=== PATIENT | female | born 1985 | race Caucasian/White ===

== ENCOUNTER 2021-04-27 03:10 | Emergency (ER) | payer MEDICARE, MEDICAID, SELFPAY ==
[2021-04-27 03:20] VITALS: BP 148/106; PULSE 89; RESP 20; TEMP 36.8; O2SAT 96
--- NOTE | 2021-04-27 03:31 | ED.FEMALEGU ---
HPI - Female Genitourinary General Chief complaint: Urogenital-Female Stated complaint: Back pain/Cramping Time Seen by Provider: 04/27/21 03:28 Source: patient and RN notes reviewed Mode of arrival: ambulatory Limitations: no limitations History of Present Illness MD elicited complaint: vaginal bleeding, pelvic pain, back pain and suspected Pertinent past history: tubal ligation Onset (ago): day(s) (4) Quality of pain: sharp and stabbing Consistency: intermittent Vaginal bleeding: heavy Sexual activity: Yes Possible : unsure if and at home test positive Related Data : 14 Para: 6 Total number of abortions (spontaneous and elective): 8 Home Medications Medication Instructions Recorded Confirmed albuterol 90 mcg INHALATION PRN 04/27/21 04/27/21 hydroxyzine HCl 25 mg PO TID PRN 04/27/21 04/27/21 metformin 500 mg PO DAILY 04/27/21 04/27/21 Allergies Allergy/AdvReac Type Severity Reaction Status Date / Time codeine Allergy Unknown Verified 04/27/21 03:23 cyclobenzaprine Allergy Unknown Verified 04/27/21 03:23 [From Flexeril] hydromorphone [From Dilaudid] Allergy Unknown Verified 04/27/21 03:23 meloxicam Allergy Unknown Verified 04/27/21 03:23 morphine Allergy Unknown Verified 04/27/21 03:23 PMFSH Past Medical History Medical History (Updated 04/27/21 @ 06:52 by Justin Cai MD) Anxiety COPD (chronic obstructive pulmonary disease) Morbid obesity PTSD (post-traumatic stress disorder) Type 2 diabetes mellitus Surgical History Surgical History (Updated 04/27/21 @ 03:41 by Justin Cai MD) H/O knee surgery History of bilateral tubal ligation failed Social History Social History (Updated 04/27/21 @ 03:41 by Justin Cai MD) Smoking packs per day: 1.5 Smoking cigarettes per day: 30.0 Smoking status: Current every day smoker Tobacco type: cigarettes Alcohol intake: never Substance use: never Exam Const: General: no acute distress Nutritional Appearance: well nourished and obese morbidly obese Orientation/consciousness: patient oriented x3 HENMT: Head: normal to inspection Ears: external ears normal Face and sinus: normal facial exam Eyes: Conjunctivae: conjunctivae normal Pupils: Equal, round and reactive pupils present EOM: EOMs intact bilaterally Neck: Neck: normal visual inspection Resp: Effort & Inspection: normal respiratory effort Auscultation: clear to auscultation bilaterally Cardio: Rate: regular rate Rhythm: regular rhythm GI: GI Palp: Yes Soft to palpation, Yes Tenderness to palpation present (GI) (diffuse), Yes Guarding due to palpation present (GI) and No Rebound tenderness present Auscultation: normal bowel sounds Back/Spine/Pelvis: Cervical Spine: cervical ROM normal Thoracic/Lumbar Spine: thoraco-lumbar ROM normal Skin: General skin exam: normal color Rashes: no rashes Neuro: General: patient oriented x3, moves all extremities, no meningeal signs and no focal motor deficits Speech: normal speech Gait exam (Neuro): Normal gait present Extrem: General: normal to inspection and no clubbing, cyanosis or edema Psych: Appearance: well kempt Mental Status: mental status grossly normal Affect: normal affect Attitude: cooperative Thought content: Yes Normal thought content present Course Course Emergency Course: once patient found out she was not she left AMA. Vital Signs Vital signs: Vital Signs Temperature 36.8 C 04/27/21 03:20 Pulse Rate 89 04/27/21 03:20 Respiratory Rate 20 04/27/21 03:20 Blood Pressure 148/106 H 04/27/21 03:20 Pulse Oximetry 96 04/27/21 03:20 Temperature 36.8 C 04/27/21 03:20 Pulse Rate 89 04/27/21 03:20 Respiratory Rate 15 04/27/21 04:33 Blood Pressure 148/106 H 04/27/21 03:20 Pulse Oximetry 100 04/27/21 04:33 MDM - Female Genitourinary Lab Data Result diagrams: 04/27/21 03:49 04/27/21 03:49 Labs: [place]
[2021-04-27 03:54] LABS: Appearance Urine Clear (Clear); Bilirubin Urine Negative (Negative); Color Urine Light Yellow (Yellow); Glucose Urine UA Negative (Negative); Ketones Urine Negative (Negative); Leukocyte Esterase Ur 1+ LEU/UL (Negative); Nitrate Urine Negative (Negative); Protein Urine Negative (Negative); Urobilinogen Urine 0.2 mg/dL (0.2-1.0)
[2021-04-27 03:57] LABS: Hematocrit 46.8 % (35.0-49.0); Hemoglobin 15.3 g/dL (12.0-15.0); Mean Corpuscular HGB Conc 32.7 g/dL (32.0-36.0); Mean Corpuscular Hemoglobin 29.9 pg (27.0-31.0); Mean Corpuscular Volume 91.6 fL (78.0-102.0); Mean Platelet Volume 10.9 fl (9.2-11.8); Platelet Count Result 249 K/mm3 (150-420); Red Blood Count 5.11 M/mm3 (4.20-5.40); Red Cell Distribution Width 12.4 % (11.6-14.4)
[2021-04-27 04:03] LABS: Add Urine Microscopic? YES; Bacteria Urine Trace /hpf; Blood Urine Trace-Intact (Negative); RBC Urine 0-2 /hpf (0-2); Squamous Epithelial Cell Urine Few /hpf (Few)
[2021-04-27 04:13] LABS: Alanine Aminotransferase 33 U/L (14-59); Albumin Level 3.7 g/dL (3.4-5.0); Alkaline Phosphatase 64 U/L (46-116); Anion Gap 10 mmol/L (8-16); Aspartate Amino Transferase 12 U/L (15-37); Bilirubin,Total 0.6 mg/dL (0.00-1.00); Blood Urea Nitrogen 11 mg/dL (7-18); Calcium 9.4 mg/dL (8.5-10.1); Carbon Dioxide 29 mmol/L (21-32); Chloride 101 mmol/L (98-108); Estimated CRCL calculation 137 ml/min; Estimated Glomerular Filt Rate > 60; Glucose 99 mg/dL (70-99); Lipase 95 U/L (73-393); Osmolality Calculated 289 mOsm/kg (285-295); Potassium 3.7 mmol/L (3.5-5.1); Sodium 140 mmol/L (136-145)
[2021-04-27 04:21] LABS: Serum Qual hCG Negative
[2021-04-27 04:22] LABS: Band Neutrophils Percent 0 % (0-6); Basophils Absolute Manual 0.13 K/mm3 (0-0.1); Basophils Percent Manual 1 % (0-1); Eosinophils Absolute Manual 0.26 K/mm3 (0.02-0.5); Eosinophils Percent Manual 2 % (1-6); Lymphocytes Absolute Manual 4.81 K/mm3 (1.1-4.5); Lymphocytes Percent Manual 37 % (18-44); Monocytes Absolute Manual 1.17 K/mm3 (0.1-0.90); Monocytes Percent Manual 9 % (3-9); Neutrophils Absolute Manual 6.63 K/mm3 (1.7-7.2); Neutrophils Percent Manual 51 % (46-73); Platelet Estimate Adequate (Adequate); SPREG INTERNAL CONTROL Positive
[2021-04-27 04:26] LABS: Atypical Lymphocytes Present
[2021-04-27 04:33] VITALS: RESP 15; O2SAT 100
== END 2021-04-27 04:33 | disposition left against medical advice (07) ==
LOC: CHSED 03:31
PROVIDERS: Emergency Provider Emergency Medicine
DX: R10.9 Unspecified abdominal pain (principal)
CPT/HCPCS: 36415; 80053; 81001; 83690; 84703; 85025; 87086; 87088; 99282; 99283

== ENCOUNTER 2022-06-22 23:44 | Emergency (ER) | payer MEDICARE, MEDICAID, SELFPAY ==
[2022-06-22 23:50] VITALS: BP 136/77; PULSE 92; RESP 20; TEMP 36.4; O2SAT 97
[2022-06-22 23:59] VITALS: O2SAT 97
[2022-06-23] VITALS (10 sets, daily range): BP systolic 120–130; BP diastolic 77–81; PULSE 84–88; RESP 18–20; O2SAT 96–99
--- NOTE | 2022-06-23 00:19 | ED.SOB ---
HPI - SOB/Dyspnea General Chief Complaint: Shortness of Breath/Dyspnea Stated Complaint: sob Time Seen by Provider: 06/22/22 23:48 Source: patient and RN notes reviewed Mode of arrival: ambulatory Limitations: no limitations History of Present Illness MD elicited complaint: shortness of breath, cough and asthma attack Pertinent past history: COPD and asthma Onset (ago): week(s) (2) Context: medication noncompliance Timing: progressively worsening Severity: mild Exacerbating factors: exertion and coughing Relieving factors: bronchodilators Known history of: COPD and asthma Treatment prior to arrival: bronchodilator Related Data Home Medications Medication Instructions Recorded Confirmed albuterol 90 mcg/actuation aerosol 90 mcg inhalation PRN 04/27/21 06/22/22 inhaler doxycycline hyclate 100 mg capsule 100 mg PO DAILY 06/22/22 06/22/22 Allergies Allergy/AdvReac Type Severity Reaction Status Date / Time codeine Allergy Unknown Verified 06/22/22 23:49 cyclobenzaprine Allergy Unknown Verified 06/22/22 23:49 [From Flexeril] hydromorphone [From Dilaudid] Allergy Unknown Verified 06/22/22 23:49 meloxicam Allergy Unknown Verified 06/22/22 23:49 morphine Allergy Unknown Verified 06/22/22 23:49 Review of Systems Review of Systems: All systems reviewed & are unremarkable except as noted in HPI and below Constitutional: Constitutional: Reports no additional constitutional complaints Eyes: Eyes: Reports no additional eye complaints ENT: Reports system reviewed and no additional complaints, except as documented Cardiovascular: Cardiovascular: Reports no additional cardiovascular complaints Respiratory: Respiratory: Reports cough, Reports dyspnea and Reports wheezing Gastrointestinal: Gastrointestinal: Reports no additional gastrointestinal complaints Genitourinary: Genitourinary: Reports no additional female genitourinary complaints Musculoskeletal: Musculoskeletal: Reports no additional musculoskeletal complaints Integumentary/Breasts: Skin/Breast: Reports system reviewed and no additional complaints, except as docu Neurologic: Reports system reviewed and no additional complaints, except as documented Psychiatric: Psychiatric: Reports no additional psychiatric complaints Endocrine: Endocrine: Reports no additional endocrine complaints Hematologic/Lymphatic: Hematologic/Lymphatic: Reports no additional hematologic/lymphatic complaints Allergic/Immunologic: Allergic/Immunologic: Reports no additional allergic/immunologic complaints PMFSH Past Medical History Medical History Anxiety COPD (chronic obstructive pulmonary disease) Morbid obesity PTSD (post-traumatic stress disorder) Type 2 diabetes mellitus Surgical History Surgical History H/O knee surgery History of bilateral tubal ligation failed Social History Social History Smoking packs per day: 1.5 Smoking cigarettes per day: 30.0 Smoking status: Current every day smoker Tobacco type: cigarettes Alcohol intake: never Substance use: never Exam Const: General: healthy appearing and no acute distress Nutritional Appearance: well nourished Orientation/consciousness: patient oriented x3 Limitations: no limitations HENMT: Head: normal to inspection Ears: external ears normal, TM's normal bilaterally and EAC's normal General nose exam: Normal external nose present and Normal nares present Face and sinus: normal facial exam and sinuses nontender Mouth: Yes Normal oral and palatal mucosa present and Yes moist mucous membranes Teeth and gingiva: dentition normal Throat: posterior oropharynx normal Eyes: Conjunctivae: conjunctivae normal Pupils: Equal, round and reactive pupils present EOM: EOMs intact bilaterally Neck: Neck: normal visual inspection, no l
[2022-06-23] MEDS: IPRATROPIUM 0.5 MG/ALBUTEROL SULFATE 2.5 MG AMPUL.NEB 3 ML INHALATION (00:26)
[2022-06-23] MEDS: methylPREDNISolone SOD SUCC 125 MG VIAL IM (00:41)
[2022-06-23] MEDS: guaiFENesin 12 HR 600 MG TABCR PO (00:41)
[2022-06-23] MEDS: cefTRIAXone 1 GM, LIDOCAINE HCL 1% LOCAL INJ 2.1 ML IM (00:42)
== END 2022-06-23 01:06 | disposition home or self-care (01) ==
PROVIDERS: Emergency Provider Emergency Medicine
DX: J44.9 Chronic obstructive pulmonary disease, unspecified (principal); E11.9 Type 2 diabetes mellitus without complications; F17.200 Nicotine dependence, unspecified, uncomplicated
CPT/HCPCS: 94640; 96372; 99284; A9270; J0696; J2930